=== PATIENT | male | born 1950 | race Caucasian/White ===

== ENCOUNTER → 2021-02-17 | Day surgery (SDC) | payer MEDICARE, BC ==
[~2021-02-17] MED LIST: Cefuroxime 10 MG/ML SYRINGE EYERT SCH
--- NOTE | 2021-02-17 08:06 | PCM.PREANE ---
Preanesthetic Assessment - Anesthesia/Transfusion/Family Hx Anesthesia History: Prior Anesthesia Without Reaction Family History of Anesthesia Reaction: No Transfusion History: No Prior Transfusion(s) - Review of Systems General: No Symptoms Pulmonary: No Symptoms Cardiovascular: No Symptoms Gastrointestinal: No Symptoms Neurological: No Symptoms Other: Reports: Diabetes (pt does not check BS ) - Physical Assessment NPO Status Date: 02/17/21 NPO Status Time: 22:00 Vital Signs: Last Vital Signs Temp 36.2 C 02/17/21 07:40 Pulse 78 02/17/21 07:40 Resp 16 02/17/21 07:40 BP 154/82 H 02/17/21 07:40 Pulse Ox 98 02/17/21 07:40 Height: 1.83 m Weight: 97.522 kg ASA Class: 2 Mental Status: Alert & Oriented x3 Airway Class: Mallampati = 2 Dentition: Reports: Normal Dentition Thyro-Mental Finger Breadths: 3 Mouth Opening Finger Breadths: 3 ROM/Head Extension: Full Lungs: Clear to Auscultation, Normal Respiratory Effort Cardiovascular: Regular Rate, Regular Rhythm - Allergies Allergies/Adverse Reactions: Allergies Allergy/AdvReac Type Severity Reaction Status Date / Time Sulfa (Sulfonamide Allergy Hives Verified 02/16/21 16:26 Antibiotics) wheat Allergy Anaphylactic Verified 02/16/21 16:26 Shock - Anesthesia Plan Beta Maria Luisa: Carvedilol Med Last Dose Date: 02/16/21 Med Last Dose Time: 22:00 - Acknowledgements Anesthesia Type Planned: MAC Pt an Appropriate Candidate for the Planned Anesthesia: Yes Alternatives and Risks of Anesthesia Discussed w Pt/Guardian: Yes Pt/Guardian Understands and Agrees with Anesthesia Plan: Yes PreAnesthesia Questionnaire HEENT History: Reports: Cataract, Impaired Vision Cardiovascular History: Reports: CAD, Hypertension, SOB on Exertion, Stents (2006) Respiratory History: Reports: None Gastrointestinal History: Reports: None Genitourinary History: Reports: None Musculoskeletal History: Reports: None Neurological History: Reports: None Psychiatric History: Reports: Anxiety Endocrine/Metabolic History: Reports: Diabetes, Type II - Past Surgical History Cardiovascular Surgical History: Reports: Coronary Artery Stent Endocrine Surgical History: Reports: Parathyroidectomy - SUBSTANCE USE Tobacco Use Status *Q: Former Tobacco User - HOME MEDS Home Medications: Home Meds DULoxetine [Cymbalta] 60 mg PO ASDIRECTED 02/16/21 [History] Dicyclomine [Bentyl] 20 mg PO ASDIRECTED 02/16/21 [History] Olopatadine [Pataday 0.2% Ophth Soln] 1 drop EYEBOTH ASDIRECTED 02/16/21 [History] Pantoprazole Sodium [Protonix] 40 mg PO DAILY 02/16/21 [History] Tamsulosin [Flomax] 0.4 mg PO DAILY 02/16/21 [History] amLODIPine [Norvasc] 5 mg PO DAILY 02/16/21 [History] busPIRone [Buspar] 10 mg PO DAILY 02/16/21 [History] carvediloL [Coreg] 6.25 mg PO ASDIRECTED 02/16/21 [History] metFORMIN HCl [Metformin HCl] 1,000 mg PO ASDIRECTED 02/16/21 [History] - CURRENT (IN HOUSE) MEDS Current Meds: Current Medications Brimonidine Tartrate (Brimonidine 0.2% Ophth Soln 5 Ml Bottle) 0 ml EYERT ASDIRECTED KATHY Stop: 02/17/21 18:00 Cefuroxime Sodium (Cefuroxime 10 Mg/Ml Syringe) 0 mg EYERT ASDIRECTED KATHY Stop: 02/17/21 18:00 Lidocaine HCl (Lidocaine 1% Pf 2 Ml Sdv) 0 ml INJECT ASDIRECTED KATHY Stop: 02/17/21 18:00 Ofloxacin (Ofloxacin 0.3% Ophth Soln 5 Ml Bottle) 0 ml EYERT ONETIME KATHY Stop: 02/17/21 18:00 Phenylephrine HCl (Phenylephrine 2.5% Ophth Soln 2 Ml Bot) 0 ml EYERT ASDIRECTED KATHY Stop: 02/17/21 18:00 Pilocarpine HCl (Pilocarpine 4% Ophth Soln 15 Ml Bot) 0 ml EYERT ASDIRECTED KATHY Stop: 02/17/21 18:00 Tetracaine HCl (Tetracaine Hcl/Pf 0.5% 4 Ml Bottle) 0 ml EYEBOTH ASDIRECTED KATHY Stop: 02/17/21 18:00 Tropicamide (Tropicamide 1% Ophth Soln 15 Ml Bottle) 0 ml EYERT ASDIRECTED KATHY Stop: 02/17/21 18:00
[2021-02-17] MEDS: Ofloxacin 0.3% Ophth Soln 5 ML Bottle EYERT SCH ×2 (08:10→08:51)
[2021-02-17] MEDS: Brimonidine 0.2% Ophth Soln 5 ML Bottle EYERT SCH ×4 (08:15→09:43)
[2021-02-17] MEDS: Phenylephrine 2.5% Ophth Soln 2 ML Bot EYERT SCH ×6 (08:18→09:40)
[2021-02-17] MEDS: Tropicamide 1% Ophth Soln 15 ML Bottle EYERT SCH ×4 (08:22→09:08)
[2021-02-17] MEDS: Tetracaine HCl/PF 0.5% 4 ML Bottle EYEBOTH SCH ×5 (09:12→09:41)
[2021-02-17] MEDS: Lidocaine 1% PF 2 ML SDV INJECT SCH ×2 (09:32→09:41)
--- NOTE | 2021-02-17 09:40 | PCM48HPAN ---
Post Anesthesia Note - EVALUATION WITHIN 48HRS OF ANESTHETIC Vital Signs in Normal Range: Yes Patient Participated in Evaluation: Yes Respiratory Function Stable: Yes Airway Patent: Yes Cardiovascular Function Stable: Yes Hydration Status Stable: Yes Pain Control Satisfactory: Yes Nausea and Vomiting Control Satisfactory: Yes Mental Status Recovered: Yes Vital Signs: Last Vital Signs Temp 36.2 C 02/17/21 07:40 Pulse 78 02/17/21 07:40 Resp 16 02/17/21 07:40 BP 154/82 H 02/17/21 07:40 Pulse Ox 98 02/17/21 07:40
[2021-02-17] MEDS: Polymyxin B/Trimethoprim 10 ML Bottle EYERT SCH ×2 (09:41→09:43)
[2021-02-17] MEDS: Pilocarpine 4% Ophth Soln 15 ML Bot EYERT SCH ×2 (09:41→09:43)
== END ==
LOC: JD.SDS 07:49
PROVIDERS: ATTEND Ophthalmology
DX: E11.36 Type 2 diabetes mellitus with diabetic cataract (principal); H25.813 Combined forms of age-related cataract, bilateral; E11.3293 Type 2 diabetes mellitus with mild nonproliferative diabetic retinopathy without macular edema, bilateral; H16.223 Keratoconjunctivitis sicca, not specified as Sjogren's, bilateral; H02.831 Dermatochalasis of right upper eyelid; H02.834 Dermatochalasis of left upper eyelid; I10 Essential (primary) hypertension; I25.10 Atherosclerotic heart disease of native coronary artery without angina pectoris; Z98.890 Other specified postprocedural states; Z87.891 Personal history of nicotine dependence; Z79.899 Other long term (current) drug therapy; Z79.84 Long term (current) use of oral hypoglycemic drugs; Z88.2 Allergy status to sulfonamides; Z91.018 Allergy to other foods
CPT/HCPCS: A9270-GY; V2632

== ENCOUNTER 2021-04-14 09:55 | Day surgery (SDC) | payer MEDICARE, BC ==
[~2021-04-14 09:55] MED LIST changes: -Cefuroxime 10 MG/ML SYRINGE EYERT SCH; +Polymyxin B/Trimethoprim 10 ML Bottle EYELF SCH
[2021-04-14] MEDS: Ofloxacin 0.3% Ophth Soln 5 ML Bottle EYELF SCH ×4 (10:50→12:32)
[2021-04-14] MEDS: Brimonidine 0.2% Ophth Soln 5 ML Bottle EYELF SCH ×4 (10:54→12:32)
[2021-04-14] MEDS: Phenylephrine 2.5% Ophth Soln 2 ML Bot EYELF SCH ×6 (11:00→12:14)
[2021-04-14] MEDS: Tropicamide 1% Ophth Soln 15 ML Bottle EYELF SCH ×4 (11:04→12:02)
--- NOTE | 2021-04-14 11:25 | PCM.PREANE ---
Preanesthetic Assessment - Procedure Proposed Procedure: left cataract - Anesthesia/Transfusion/Family Hx Anesthesia History: Prior Anesthesia Without Reaction Family History of Anesthesia Reaction: No Transfusion History: No Prior Transfusion(s) - Review of Systems General: No Symptoms Pulmonary: No Symptoms Cardiovascular: No Symptoms Gastrointestinal: No Symptoms Neurological: No Symptoms Other: Reports: Diabetes, Depression, Anxiety - Physical Assessment NPO Status Date: 04/13/21 (210) NPO Status Time: 21:00 Vital Signs: Last Vital Signs Temp 98.1 F 04/14/21 10:35 Pulse 70 04/14/21 10:35 Resp 16 04/14/21 10:35 BP 148/67 H 04/14/21 10:35 Pulse Ox 97 04/14/21 10:35 Height: 6 ft Weight: 95.254 kg ASA Class: 2 Mental Status: Alert & Oriented x3 Airway Class: Mallampati = 1 Dentition: Reports: Partial (top), Broken Tooth/Teeth Thyro-Mental Finger Breadths: 3 Mouth Opening Finger Breadths: 3 ROM/Head Extension: Full Lungs: Clear to Auscultation, Normal Respiratory Effort Cardiovascular: Regular Rate, Regular Rhythm - Lab Values: Laboratory Last Values POC Glucose 115 mg/dL (70-99) H 04/14/21 10:42 - Allergies Allergies/Adverse Reactions: Allergies Allergy/AdvReac Type Severity Reaction Status Date / Time Sulfa (Sulfonamide Allergy Hives Verified 04/14/21 10:58 Antibiotics) wheat Allergy Anaphylactic Verified 04/14/21 10:58 Shock - Blood Blood Available: No - Anesthesia Plan Beta Maria Luisa: Carvedilol Med Last Dose Date: 04/13/21 Med Last Dose Time: 21:00 - Acknowledgements Anesthesia Type Planned: MAC Pt an Appropriate Candidate for the Planned Anesthesia: Yes Alternatives and Risks of Anesthesia Discussed w Pt/Guardian: Yes Pt/Guardian Understands and Agrees with Anesthesia Plan: Yes PreAnesthesia Questionnaire HEENT History: Reports: Cataract, Impaired Vision Cardiovascular History: Reports: CAD, High Cholesterol, Hypertension, SOB on Exertion, Stents (2006) Respiratory History: Reports: None Gastrointestinal History: Reports: None Genitourinary History: Reports: None Musculoskeletal History: Reports: None Neurological History: Reports: None Psychiatric History: Reports: Anxiety Endocrine/Metabolic History: Reports: Diabetes, Type II Oncologic (Cancer) History: Reports: None - Past Surgical History Cardiovascular Surgical History: Reports: Coronary Artery Stent Endocrine Surgical History: Reports: Parathyroidectomy Musculoskeletal Surgical History: Reports: Other (See Below) (back surgery) - SUBSTANCE USE Tobacco Use Status *Q: Former Tobacco User Tobacco Use Within Last Twelve Months: No Second Hand Smoke Exposure: No Days Per Week of Alcohol Use: 1 Recreational Drug Use History: No - HOME MEDS Home Medications: Home Meds DULoxetine [Cymbalta] 60 mg PO ASDIRECTED 02/16/21 [History] Dicyclomine [Bentyl] 20 mg PO ASDIRECTED 02/16/21 [History] Olopatadine [Pataday 0.2% Ophth Soln] 1 drop EYEBOTH ASDIRECTED 02/16/21 [History] Pantoprazole Sodium [Protonix] 40 mg PO DAILY 02/16/21 [History] Tamsulosin [Flomax] 0.4 mg PO DAILY 02/16/21 [History] amLODIPine [Norvasc] 5 mg PO DAILY 02/16/21 [History] busPIRone [Buspar] 10 mg PO DAILY 02/16/21 [History] carvediloL [Coreg] 6.25 mg PO ASDIRECTED 02/16/21 [History] metFORMIN HCl [Metformin HCl] 1,000 mg PO ASDIRECTED 02/16/21 [History] ALPRAZolam [Alprazolam ER] 0.5 mg PO 04/13/21 [History] Rosuvastatin [Crestor] 20 mg PO DAILY 04/13/21 [History] - CURRENT (IN HOUSE) MEDS Current Meds: Current Medications Brimonidine Tartrate (Brimonidine 0.2% Ophth Soln 5 Ml Bottle) 0 ml EYELF ASDIRECTED KATHY Stop: 04/14/21 18:00 Last Admin: 04/14/21 10:54 Dose: 1 drop Documented by: Cefuroxime Sodium (Cefuroxime 10 Mg/Ml Syringe) 0 mg EYELF ASDIRECTED KATHY Stop: 04/14/21 18:00 Lidocaine HCl (Lidocaine 1% Pf 2 Ml Sdv) 0 ml INJECT ASDIRECTED KATHY Stop: 04/14/21 18:00 Ofloxacin (Ofloxacin 0.3% Ophth Soln 5 Ml Bottle) 0 ml EYELF ASDIRECTED KATHY Stop: 04/14/21 18:00 Last Admin: 04/14/21 10:50 Dose: 1 drop Documented by: Phenylephrine HCl (Phenylephrine 2.5% Ophth Soln 2 Ml Bot) 0 ml EYELF ASDIRECTED KATHY Stop: 04/14/21 18:00 Last Admin: 04/14/21 11:09 Dose: 1 drop Documented by: Pilocarpine HCl (Pilocarpine 4% Ophth Soln 15 Ml Bot) 0 ml EYELF ASDIRECTED KATHY Stop: 04/14/21 18:00 Tetracaine HCl (Tetracaine Hcl/Pf 0.5% 4 Ml Bottle) 0 ml EYEBOTH ASDIRECTED KATHY Stop: 04/14/21 18:00 Tropicamide (Tropicamide 1% Ophth Soln 15 Ml Bottle) 0 ml EYELF ASDIRECTED KATHY Stop: 04/14/21 18:00 Last Admin: 04/14/21 11:15 Dose: 1 drop Documented by:
[2021-04-14] MEDS: Lidocaine 1% PF 2 ML SDV INJECT SCH ×2 (11:59→12:20)
[2021-04-14] MEDS: Tetracaine HCl/PF 0.5% 4 ML Bottle EYEBOTH SCH ×4 (11:59→12:19)
[2021-04-14] MEDS: Cefuroxime 10 MG/ML SYRINGE EYELF SCH ×2 (11:59→12:31)
[2021-04-14] MEDS: Pilocarpine 4% Ophth Soln 15 ML Bot EYELF SCH ×2 (12:00→12:32)
--- NOTE | 2021-04-14 12:35 | PCM48HPAN ---
Post Anesthesia Note - EVALUATION WITHIN 48HRS OF ANESTHETIC Vital Signs in Normal Range: Yes Patient Participated in Evaluation: Yes Respiratory Function Stable: Yes Airway Patent: Yes Cardiovascular Function Stable: Yes Hydration Status Stable: Yes Pain Control Satisfactory: Yes Nausea and Vomiting Control Satisfactory: Yes Mental Status Recovered: Yes Vital Signs: Last Vital Signs Temp 36.7 C 04/14/21 10:35 Pulse 70 04/14/21 10:35 Resp 16 04/14/21 10:35 BP 148/67 H 04/14/21 10:35 Pulse Ox 97 04/14/21 10:35
== END 2021-04-14 12:40 | disposition home or self-care (01) ==
LOC: JD.SDS 09:55
PROVIDERS: ATTEND Ophthalmology
DX: E11.36 Type 2 diabetes mellitus with diabetic cataract (principal); H25.812 Combined forms of age-related cataract, left eye; F41.9 Anxiety disorder, unspecified; I10 Essential (primary) hypertension; I25.10 Atherosclerotic heart disease of native coronary artery without angina pectoris; Z79.899 Other long term (current) drug therapy; E78.00 Pure hypercholesterolemia, unspecified; Z79.84 Long term (current) use of oral hypoglycemic drugs; Z98.890 Other specified postprocedural states; Z87.891 Personal history of nicotine dependence; Z88.2 Allergy status to sulfonamides; Z91.018 Allergy to other foods
CPT/HCPCS: 66984; 82947; J0697; A9270-GY; V2632